=== PATIENT | male | born 2000 | race Caucasian/White ===

== ENCOUNTER 2024-02-15 22:29 | Emergency (ER) | payer SELFPAY ==
[~2024-02-15] VITALS: Ht 185.4 cm; Wt 77.4 kg
[2024-02-15] MEDS ORDERED: FLUTICASONE PROPIONATE 50 MCG BTL NAS ONE (23:00)
[2024-02-15] MEDS ORDERED: FLONASE ALLERG9.9 ML NAS (23:01)
[2024-02-15 23:05] VITALS: BP 140/90
== END 2024-02-15 23:10 | disposition home or self-care (01) ==
LOC: ED 22:29
DX: J30.9 Allergic rhinitis, unspecified (principal)